=== PATIENT | female | born 1980 | race African-American/Black ===

== ENCOUNTER 2017-04-05 11:00 | Inpatient (IN) | payer OTHER ==
[2017-04-15 08:23] VITALS: BMI 28.8
[2017-04-15] MEDS ORDERED: ELECTROLYTE-148 SOLN 500 ML IV ONE (08:24)
[2017-04-15] MEDS ORDERED: ONDANSETRON 4 MG/2 ML VIAL IVPUSH PRN (08:26)
[2017-04-15] MEDS ORDERED: IBUPROFEN 800 MG/8 ML IJ IVPB PRN (08:26)
[2017-04-15] MEDS ORDERED: ELECTROLYTE-148 SOLN 1,000 ML IV SCH (08:30)
[2017-04-15 08:33] LABS: MCH 24.9 pg (25.7-33.7); MCHC 31.9 g/dl (32.0-36.0); MEAN CELL VOLUME 78.1 fl (80-96); MEAN PLT VOLUME 10.6 fl (7.5-11.1); PLATELET COUNT 148 K/MM3 (134-434); RDW 14.8 % (11.6-15.6)
--- NOTE | 2017-04-15 08:35 | HP ---
Past Medical History - Primary Care Physician PCP:: Marko Kessler - Admission Chief Complaint: 36yo P0 with at EGA 39wk and fetus in breech presentation admitted for primary C/S. History of Present Illness: complicated by: GDM A2 Breech presentation Fibroid uterus Anemia-- Cell saver was ordered but unable to come. Pt declined to reschedule. 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: No: Alzheimer's, CVA, Dementia, Migraine, Multiple Sclerosis, Peripheral Neuropathy, Parkinson's, Seizure, Syncope, TIA, Vertigo, Other Cardiovascular: No: AFIB, Aneurysm, Aortic Insufficiency, Aortic Stenosis, CAD, CHF, Deep Vein Thrombosis, HTN, Hyperlipdemia, UT, Mitral Insufficiency, Mitral Stenosis, Murmur, Pulmonary Hypertension, Other Pulmonary: No: Asthma, Bronchitis, Cancer, COPD, O2 Dependent, Pneumonia, Previously Intubated, Pulmonary Embolus, Pulmonary Fibrosis, Sleep Apnea, Other Gastrointestinal: No: Ascites, Cancer, Constipation, Crohn's Disease, Diverticulitis, Diverticulosis, Esophageal Varices, Gastritis, GERD, GI Bleed, Hemorrhoids, Hiatal Hernia, Inflamatory Bowel Disease, Irritable Bowel Disease, Pancreatitis, Peptic Ulcer Disease, Ulcerative Colitis, Other Hepatobiliary: No: Cirrhosis, Cholelithiasis, Cholecystitis, Choledocholithiasis , Hepatitis A, Hepatitis B, Hepatitis C, Other Renal/: No: Renal Failure, Renal Inusuff, BPH, Cancer, Hematuria, Hemodialysis , Neurogenic Bladder, Renal Calculi, UTI, Other Reproductive: Yes: Fibroids ...: 2 ...Para: 0 ...Term: 0 ...: 0 ...Spon : 1 ...Induced : 0 ...Multiple Gestation: 0 ...LMP: 07/16/16 ... Weeks Gestation by Dates: 39.0 ...EDC by Dates: 04/22/17 ...EDC by Sono: 04/22/17 Heme/Onc: Yes: Anemia Infectious Disease: No: AIDS, C-Diff, Herpes Zoster, HIV, MRSA, STD's, Tuberculosis, VREF, Other Psych: No: Addictions, Anxiety, Bipolar, Depression, Panic, Psychosis, Schizophrenia, Other Musculoskeletal: No: Bursitis, Chronic low back pain, Hemiparesis, Hemiplegia, Osteoarthritis, Paraplegia, Other Rheumatology: No: Fibromyalgia, Gout, Lupus, Rheumatoid Arthritis, Sarcoidosis, Vasculitis, Other ENT: No: Allergic Rhinitis, Sinusitis, Other Endocrine: No: [place]'s Disease, Moshe's Disease, Diabetes Insipidus, Diabetes Mellitus, Hyperparathyroidism, Hyperthyroidism, Hypothyroidism, Osteopenia, SIADH, Other Dermatology: No: Basal Cell, Cellulitis, Eczema, Melanoma, Psoriasis, Squamous Cell, Other - Past Surgical History Past Surgical History: Yes: None Hx Myomectomy: No Hx Transabdominal Cerclage: No - Smoking History Smoking history: Never smoked Have you smoked in the past 12 months: No Aproximately how many cigarettes per day: 0 - Alcohol/Substance Use Hx Alcohol Use: No History of Substance Use: reports: None - Social History ADL: Independent History of Recent Travel: No Home Medications - Allergies Allergies/Adverse Reactions: Allergies Allergy/AdvReac Type Severity Reaction Status Date / Time No Known Allergies Allergy Verified 12/31/16 04:49 - Home Medications Home Medications: Ambulatory Orders Skx638/Iron Fumarate/FA/Dss [ 19 Tablet] 1 each PO DAILY 12/31/16 Insulin NPH 28 units SQ HS 04/05/17 RX: Ferrous Sulfate [Feosol] 325 mg PO TID #90 tablet 04/05/17 RX: Insulin Regular [Novolin R Vial -] 8 units SQ ACDIN 04/05/17 Family Disease History - Family Disease History Family History: Denies Review of Systems - Review of Systems Constitutional: reports: No Symptoms Eyes: reports: No Symptoms HENT: reports: No Symptoms Neck: reports: No Symptoms Cardiovascular: reports: No Symptoms Respiratory: reports: No Symptoms Gastrointestinal: reports: No Symptoms Genitourinary: reports: No Symptoms Breasts: reports: No Symptoms Reported Musculoskeletal: reports: No Symptoms Integumentary: reports: No Symptoms Neurological: reports: No Symptoms Endocrine: reports: No Symptoms Hematology/Lymphatic: reports: No Symptoms Psychiatric: reports: No Symptoms Pain Intensity: 0 Physical Exam - Maternity Vital Signs: Vital Signs Temperature 98.5 F 04/15/17 07:20 Pulse Rate 108 H 04/15/17 07:20 Respiratory Rate 20 04/15/17 07:20 Blood Pressure 118/77 04/15/17 07:20 O2 Sat by Pulse Oximetry (%) Constitutional: Yes: Well Nourished, No Distress, Calm Eyes: Yes: WNL, Conjunctiva Clear HENT: Yes: WNL, Atraumatic, Normocephalic Neck: Yes: WNL, Supple, Trachea Midline Cardiovascular: Yes: WNL, Regular Rate and Rhythm Breast(s): Yes: WNL - Abdominal Exam/OB Fundal Height: 39 Number of Fetuses: Single Presentation: Breech Contractions: No Intensity: Unaware Monitor Mode: External Heart Rate (range): 150 Heart Rate Location: Midline Category: I Accelerations: Non-Uniform Decelerations: None - Vaginal Exam/OB Vaginal Bleediing: No Speculum Exam: No Dilatation (cm): 0 Presentation: Layo Breech Station: -4 - Physical Exam Musculoskeletal: Yes: WNL Extremities: Yes: WNL Edema: No Edema: LLE: Trace, RLE: Trace Integumentary: Yes: WNL Deep Tendon Reflex Grade: Normal +2 ...Motor Strength: WNL Psychiatric: Yes: WNL, Alert, Oriented Hemorrhage Risk Assessment - Risk Factors Medium Risk Factors: Yes: Large myomas High Risk Factors: Yes: None Risk Score: 1 Risk Level: Medium Risk Imaging - Results Ultrasound: Report Reviewed Assessment/Plan 36yo P0 with at EGA 39wk and fetus in breech presentation admitted for primary C/S. 1. Fetus is still breech on exam 2. Anemia discussed with pt. Pt is Jehowah witness and declined PRBC but will accept cryoprecipitate and possibly FFP, if needed. The Cell Saver was ordered but unable to come due to ?? scheduling conflict. The pt was offered to reschedule but declined. 3. Fibroid uterus. Increased risks of bleeding explained. Risks of serious morbidity and mortality explained to pt. 4. Risks of surgery explained, including pain, scarring, infection, injury to underlying organs, hysterectomy, hemorrhage, injury to underlying organs, need for additional surgery to treat any complications, etc. The pt verbalized her understanding and requested to proceed.
[2017-04-15 09:38] LABS: ARTERIAL BLD GAS O2 SATURATION 15.9 % (90-98.9); ARTERIAL BLOOD GAS BASE EXCESS -1.4 meq/l (-2-2); ARTERIAL BLOOD GAS HCO3 26.5 meq/L (22-26); ARTERIAL BLOOD GAS pH 7.26 (7.35-7.45)
[2017-04-15 09:39] LABS: LPM/O2% 21%; PT. ON O2? NO; TYPE OF O2 ROOM AIR
[2017-04-15 09:41] LABS: ARTERIAL BLOOD GAS BASE EXCESS -2.2 meq/l (-2-2); ARTERIAL BLOOD GAS pH 7.31 (7.35-7.45)
[2017-04-15 09:43] LABS: PT. ON O2? NO
[2017-04-15 09:44] LABS: ARTERIAL BLOOD GAS PO2 30.4 mmHg (80-100); LPM/O2% 21%; TYPE OF O2 ROOM AIR
[2017-04-15] MEDS ORDERED: BENZOCAINE 28 GM HEMORRHOIDAL OINTMENT TP PRN (09:48)
[2017-04-15] MEDS ORDERED: SENNOSIDES/DOCUSATE COMBO (SENNA PLUS) TABLET (UD) PO PRN (09:48)
[2017-04-15] MEDS ORDERED: METHYLERGONOVINE MALEATE 0.2 MG/1 ML AMP IM PRN (09:48)
[2017-04-15] MEDS ORDERED: oxyCODONE HCL 5 MG TABLET PO PRN (09:48)
[2017-04-15] MEDS ORDERED: WITCH HAZEL 50% (TUCKS) 40 PAD/JAR PAD TP PRN (09:48)
[2017-04-15] MEDS ORDERED: OXYTOCIN 20 UNITS in 0.9% NS 1,000 ML IV SCH (10:00)
--- NOTE | 2017-04-15 11:58 | OP ---
Operative Note - Note: Operative Date: 04/15/17 Pre-Operative Diagnosis: at EGA 39wk. Mike Breech. Fibroid uterus. Anemia Operation: Primary LT C/S Findings: Fetus in mike breech Uterine fibroids No meconium Post-Operative Diagnosis: Same as Pre-op Surgeon: Marko Kessler Stencil Maker: Deborah Juarez Anesthesiologist/KINDERGARTEN PREP TEACHER: Jose Rodriguez Anesthesia: Spinal Specimens Removed: Placenta Estimated Blood Loss (mls): 700 Drains & Tubes with Location: Kilgore catheter Drains, Volume Out (mls): 300 Blood Volume Replaced (mls): 700 Fluid Volume Replaced (mls): 1,400 Operative Report Dictated: Yes
--- NOTE | 2017-04-15 12:03 | PN ---
Delivery - Delivery Section: Primary, Low Flap Transverse Type of Anesthesia: Spinal Episiotomy/Laceration: None EBL (cc): 700 Delivery, Single - Stages of Labor Date 1st Stage Initiatied: 04/15/17 Date of Delivery: 04/15/17 Time of Delivery: 09:11 Date Placenta Delivered: 04/15/17 Time Placenta Delivered: 09:12 Placenta: Yes: Manual Removal, Normal Configuration - Condition of Infant Medical Director Of Hospice/Margin Analyst Present: Yes Name: Prachi Jackson Gender: Female Weight: 3.459 kg Position: SP Total Hours ROM (Hrs/Mins): 3MIN - 1 Minute Total Score: 9 5 Minutes Total Score: 9 - [place] Feeding Plan Initial Plan: Elected not to breastfeed exclusively throughout hospitalization Benefits of Exclusively reinforced: Yes Remarks - Remarks Remarks: Breech, mike Fibroid uterus.
[2017-04-15 12:41] LABS: METAMYELOCYTE 2 % (0-2); PLATELET ESTIMATE ADEQUATE (NORMAL)
[2017-04-15] MEDS ORDERED: DEXTROSE 5% IVPB SCH (13:30)
[2017-04-15] MEDS ORDERED: OXYTOCIN IVPB SCH (13:30)
[2017-04-15] MEDS ORDERED: WATER IVPB SCH (13:30)
--- NOTE | 2017-04-15 18:58 | OP ---
DATE OF OPERATION: 04/15/2017 PREOPERATIVE DIAGNOSES: 1. at estimated gestational age of 39 weeks. 2. Fetus in mike breech presentation. 3. Gestational diabetes mellitus, diet-controlled, type 2. 4. Fibroid uterus. 5. Anemia. 6. Patient is a [place]. POSTOPERATIVE DIAGNOSES: 1. at estimated gestational age of 39 weeks. 2. Fetus in mike breech presentation. 3. Gestational diabetes mellitus, diet-controlled, type 2. 4. Fibroid uterus. 5. Anemia. 6. Patient is a [place]. 7. Delivered. PROCEDURE: Primary low transverse section via Pfannenstiel skin incision. SURGEON: Marko Kessler MD PRESIDENT CELEBRITY ACQUISTION: Deborah Juarez MD ANESTHESIOLOGIST: Jose Rodriguez MD ANESTHESIA: Spinal. COMPLICATIONS: None. ESTIMATED BLOOD LOSS: 700 mL. URINE OUTPUT: 300 mL of clear urine at the end of the procedure INTRAVENOUS FLUIDS: 1400 mL of crystalloids PATHOLOGY: Placenta FINDINGS: The uterus containing multiple uiwdjyng-pe-zdvgf-size fibroids ranging from 2 to 5 cm. The fetus is in mike breech presentation. No meconium in amniotic fluid. Fetus delivered without complications. Apgars 9 and 9. PROCEDURE: The patient was met preoperatively. The risks, benefits, alternatives of surgery were discussed in detail. All questions were answered. The patient was then brought to the OR with the IV running. She was placed on the surgical table in the sitting position. The spinal anesthesia was achieved without difficulty. The patient was then placed in a supine position with leftward tilt. She was prepped and draped in the usual sterile fashion. The Kilgore catheter was inserted into the bladder and left to drain to gravity. The surgeons then proceeded with the operation. A Pfannenstiel skin incision was made with a knife approximately 2 cm above the pubic symphysis. The incision was carried down to the level of fascia. The fascia was incised in the midline, and the incision was expanded bilaterally using Eid scissors. The fascia was dissected away from the rectus muscle superiorly and inferiorly using sharp dissection. The rectus muscles were in the midline using sharp dissection. The peritoneum was identified and entered sharply. The peritoneal incision was expanded superiorly and inferiorly. The bladder was dissected away from the lower uterine segment using sharp dissection. The bladder was retracted downward using Andre retractor. The uterus was incised transversely in the lower uterine segment. The incision was extended bilaterally using Eid scissors. The baby was then delivered from mike breech presentation without complications. The umbilical cord was clamped and cut. The baby is crying spontaneously and was handed to the awaiting director of distance learning. The placenta was then removed manually without complications. The uterus was cleared of all clots and debris. There were multiple fibroids noted around the uterus. The uterine incision was repaired using a 0 Biosyn suture in a running, locking stitch with good hemostasis and approximation. The uterine incision was then imbricated using a 0 Biosyn suture with good hemostasis and approximation. The bladder peritoneum was approximated using a 0 Biosyn suture. The operative site was irrigated using copious amounts of normal saline. Once the saline was aspirated, good hemostasis was noted. The fallopian tubes and ovaries were noted to be within normal limits. The abdominal peritoneum was then closed using a 2-0 chromic suture. The rectus muscles were approximated in the midline using several interrupted 2-0 chromic sutures. The fascia was closed using a 0 Vicryl suture. The subcutaneous adipose tissues were approximated to eliminate space using several interrupted 0 Vicryl sutures. The skin was closed with a subcutaneous stitch using 4-0 Vicryl suture. Sponge, laparotomy, needle counts were correct. The patient was transferred to recovery room in stable condition. Ann-Marie [id number]
[2017-04-16 08:04] LABS: BASOPHIL 0.3 % (0-2.0); EOSINOPHIL 0.6 % (0-4.5); MCH 24.6 pg (25.7-33.7); MCHC 31.6 g/dl (32.0-36.0); MEAN PLT VOLUME 10.1 fl (7.5-11.1); PLATELET COUNT 137 K/MM3 (134-434); RDW 14.7 % (11.6-15.6); WHITE BLOOD COUNT 11.8 K/mm3 (4.0-10.0)
[2017-04-16] MEDS: ENOXAPARIN NA (PORCINE) 40 MG/0.4 ML DISP.SYRIN SQ SCH (09:44)
[2017-04-16] MEDS ORDERED: BISACODYL 10 MG SUPP.RECT RC PRN (09:48)
--- NOTE | 2017-04-16 10:06 | PN ---
Post Progress Note - Subjective Subjective: 36 YO P1 now no flatus ambulating, voiding tolerating PO Post Day: 1 Type of Delivery: Primary C/S Vital Signs: Vital Signs Temperature 99.1 F 04/16/17 06:00 Pulse Rate 81 04/16/17 06:00 Respiratory Rate 20 04/16/17 07:00 Blood Pressure 109/59 04/16/17 06:00 O2 Sat by Pulse Oximetry (%) 100 04/15/17 10:50 Breast Exam: Yes: Soft Uterus: Yes: Fundus Firm Incision: Yes: Dressing dry and intact Abdomen/GI: Yes: Abdomen soft Lochia: Yes: Rubra Lochia, amount: Small Extremities: Yes: Calves non-tender Activity: Ambulating - Labs Labs: CBC WBC 11.8 K/mm3 (4.0-10.0) H D 04/16/17 07:30 RBC 3.73 M/mm3 (3.60-5.2) 04/16/17 07:30 Hgb 9.2 GM/dL (10.7-15.3) L 04/16/17 07:30 Hct 29.1 % (32.4-45.2) L 04/16/17 07:30 MCV 78.0 fl (80-96) L 04/16/17 07:30 MCHC 31.6 g/dl (32.0-36.0) L 04/16/17 07:30 RDW 14.7 % (11.6-15.6) 04/16/17 07:30 Plt Count 137 K/MM3 (134-434) 04/16/17 07:30 MPV 10.1 fl (7.5-11.1) 04/16/17 07:30 Neutrophils % 73.0 % (42.8-82.8) D 04/16/17 07:30 Lymphocytes % 14.6 % (8-40) D 04/16/17 07:30 Monocytes % 11.5 % (3.8-10.2) H D 04/16/17 07:30 Eosinophils % 0.6 % (0-4.5) 04/16/17 07:30 Basophils % 0.3 % (0-2.0) 04/16/17 07:30 Metamyelocytes 2 % (0-2) D 04/15/17 07:50 Myelocytes 1 % (0-2) 04/15/17 07:50 Differential Comment Manual diff done 04/15/17 07:50 Platelet Estimate Adequate (NORMAL) 04/15/17 07:50 Assessment/Plan 36yo P1 s/p 1"c/s for Breech, Failed External version VSS, Afibrile Doing well Rh+ no need for RhoGam cont routine post Op care
--- NOTE | 2017-04-16 10:16 | PN ---
Progress Note (short form) - Note Progress Note: Anesthesia postop note 36 y/o F s/p spinal anesthesia for section, duramorph for postop pain POD#1, vss, aaox3, no complaints, pain well controlled, ambulating. No anesthesia complications.
[2017-04-16] MEDS ORDERED: DIPHTH,PERTUSS(ACELL),TET 0.5 ML DISP.SYRIN IM ONE (14:00)
[2017-04-16] MEDS: oxyCODONE HCL 5 MG TABLET PO PRN ×2 (15:31→23:55)
[2017-04-16] MEDS: SIMETHICONE 80 MG TAB.CHEW (FP) PO PRN ×2 (15:31→23:54)
[2017-04-16] MEDS: ACETAMINOPHEN 325 MG TABLET (FP) PO PRN ×2 (15:32→23:55)
[2017-04-17] MEDS: oxyCODONE HCL 5 MG TABLET PO PRN ×2 (07:34→15:27)
[2017-04-17] MEDS: SIMETHICONE 80 MG TAB.CHEW (FP) PO PRN ×3 (07:36→22:22)
[2017-04-17] MEDS: ACETAMINOPHEN 325 MG TABLET (FP) PO PRN ×3 (07:36→22:23)
[2017-04-17] MEDS: ENOXAPARIN NA (PORCINE) 40 MG/0.4 ML DISP.SYRIN SQ SCH (09:52)
[2017-04-17] MEDS ORDERED: TUBERCULIN PPD 5 TU/0.1ML SYRINGE (IN PATIENT USE ONLY) ID ONE (12:00)
--- NOTE | 2017-04-17 15:16 | PN ---
Post Progress Note - Subjective Subjective: No complaints Post Day: 2 Type of Delivery: Primary C/S Vital Signs: Vital Signs Temperature 98.2 F 04/17/17 07:25 Pulse Rate 91 H 04/17/17 07:25 Respiratory Rate 20 04/17/17 07:25 Blood Pressure 124/72 04/17/17 07:25 O2 Sat by Pulse Oximetry (%) 100 04/15/17 10:50 Breast Exam: Yes: Soft Uterus: Yes: Fundus Firm, Fundus below umbilicus, Non-tender Incision: Yes: Dressing dry and intact, Sutures intact Abdomen/GI: Yes: Abdomen soft, Passing flatus, Tolerating PO Lochia: Yes: Rubra Lochia, amount: Small Extremities: Yes: Calves non-tender Perineum: Yes: Intact Activity: Ambulating - Labs Labs: CBC WBC 11.8 K/mm3 (4.0-10.0) H D 04/16/17 07:30 RBC 3.73 M/mm3 (3.60-5.2) 04/16/17 07:30 Hgb 9.2 GM/dL (10.7-15.3) L 04/16/17 07:30 Hct 29.1 % (32.4-45.2) L 04/16/17 07:30 MCV 78.0 fl (80-96) L 04/16/17 07:30 MCHC 31.6 g/dl (32.0-36.0) L 04/16/17 07:30 RDW 14.7 % (11.6-15.6) 04/16/17 07:30 Plt Count 137 K/MM3 (134-434) 04/16/17 07:30 MPV 10.1 fl (7.5-11.1) 04/16/17 07:30 Neutrophils % 73.0 % (42.8-82.8) D 04/16/17 07:30 Lymphocytes % 14.6 % (8-40) D 04/16/17 07:30 Monocytes % 11.5 % (3.8-10.2) H D 04/16/17 07:30 Eosinophils % 0.6 % (0-4.5) 04/16/17 07:30 Basophils % 0.3 % (0-2.0) 06/06/17 07:30 Metamyelocytes 2 % (0-2) D 04/15/17 07:50 Myelocytes 1 % (0-2) 04/15/17 07:50 Differential Comment Manual diff done 04/15/17 07:50 Platelet Estimate Adequate (NORMAL) 04/15/17 07:50 Assessment/Plan 36yo P1 s/p primary LT C/S, doing well stable, afebrile. care instructions reviewed. Continue routine postop care. Ambulation encouraged..
[2017-04-17] MEDS: IBUPROFEN 600 MG TABLET (FP) PO PRN (22:22)
[2017-04-18 07:32] LABS: BASOPHIL 0.3 % (0-2.0); EOSINOPHIL 2.4 % (0-4.5); MCH 25.2 pg (25.7-33.7); MCHC 32.2 g/dl (32.0-36.0); MEAN CELL VOLUME 78.2 fl (80-96); MEAN PLT VOLUME 9.6 fl (7.5-11.1); NEUTROPHILS 64.9 % (42.8-82.8); PLATELET COUNT 157 K/MM3 (134-434); RDW 15.8 % (11.6-15.6)
--- NOTE | 2017-04-18 07:50 | PN ---
Post Progress Note - Subjective Subjective: Patient without acute complaints. Reports tolerating oral intake without nausea or vomiting. Ambulating without dizziness. Denies fevers or chills. Pain well controlled with oral pain medication. without difficulty. Passing flatus. Post Day: 3 Type of Delivery: Primary C/S Vital Signs: Vital Signs Temperature 98.1 F 04/17/17 22:00 Pulse Rate 77 04/17/17 22:00 Respiratory Rate 18 04/17/17 22:00 Blood Pressure 112/73 04/17/17 22:00 O2 Sat by Pulse Oximetry (%) 100 04/15/17 10:50 Breast Exam: Yes: Soft Uterus: Yes: Fundus Firm, Fundus below umbilicus Incision: Yes: Sutures intact. No: Redness, Oozing Abdomen/GI: Yes: Abdomen soft, Passing flatus, Tolerating PO. No: Abdominal Distention, Tender Lochia: Yes: Serosa Lochia, amount: Small Extremities: Yes: Calves non-tender Activity: Ambulating - Labs Labs: CBC WBC 11.8 K/mm3 (4.0-10.0) H D 04/16/17 07:30 RBC 3.73 M/mm3 (3.60-5.2) 04/16/17 07:30 Hgb 9.2 GM/dL (10.7-15.3) L 04/16/17 07:30 Hct 29.1 % (32.4-45.2) L 04/16/17 07:30 MCV 78.0 fl (80-96) L 04/16/17 07:30 MCHC 31.6 g/dl (32.0-36.0) L 04/16/17 07:30 RDW 14.7 % (11.6-15.6) 04/16/17 07:30 Plt Count 137 K/MM3 (134-434) 04/16/17 07:30 MPV 10.1 fl (7.5-11.1) 04/16/17 07:30 Neutrophils % 73.0 % (42.8-82.8) D 04/16/17 07:30 Lymphocytes % 14.6 % (8-40) D 04/16/17 07:30 Monocytes % 11.5 % (3.8-10.2) H D 04/16/17 07:30 Eosinophils % 0.6 % (0-4.5) 04/16/17 07:30 Basophils % 0.3 % (0-2.0) 04/16/17 07:30 Metamyelocytes 2 % (0-2) D 04/15/17 07:50 Myelocytes 1 % (0-2) 04/15/17 07:50 Differential Comment Manual diff done 04/15/17 07:50 Platelet Estimate Adequate (NORMAL) 04/15/17 07:50 Assessment/Plan 36 yo POD3 sp 1 CD, mild asymptomatic anemia, doing well 1. Continue routine postoperative care. 2. Encourage ambulation and incentive spirometer use 3. Continue oral pain medication 4. Mild asymptomatic anemia, will start ferrous sulfate 5. Anticipate discharge home postoperative day #4
[2017-04-18] MEDS: ENOXAPARIN NA (PORCINE) 40 MG/0.4 ML DISP.SYRIN SQ SCH (09:34)
[2017-04-18] MEDS: FERROUS SO4 325 MG TABLET (FP) PO SCH ×2 (10:37→17:23)
[2017-04-18] MEDS: IBUPROFEN 600 MG TABLET (FP) PO PRN (21:03)
[2017-04-18] MEDS: SIMETHICONE 80 MG TAB.CHEW (FP) PO PRN (21:03)
[2017-04-18] MEDS: ACETAMINOPHEN 325 MG TABLET (FP) PO PRN (21:03)
--- NOTE | 2017-04-19 07:19 | DS ---
Physical Exam-BRUSH PAINTER Vital Signs: Vital Signs Temperature 98.9 F 04/18/17 22:00 Pulse Rate 80 04/18/17 22:00 Respiratory Rate 20 04/18/17 22:00 Blood Pressure 110/59 04/18/17 22:00 O2 Sat by Pulse Oximetry (%) 100 04/15/17 10:50 Constitutional: Yes: Well Nourished, No Distress, Calm Eyes: Yes: WNL, Conjunctiva Clear, EOM Intact HENT: Yes: WNL, Atraumatic, Normocephalic Neck: Yes: WNL, Supple, Trachea Midline Cardiovascular: Yes: WNL, Regular Rate and Rhythm Respiratory: Yes: WNL, Regular, CTA Bilaterally Gastrointestinal: Yes: WNL ...Rectal Exam: Yes: WNL Renal/: Yes: WNL ....Post : Yes: Uterus firm, Uterus non-tender Breast(s): Yes: WNL Musculoskeletal: Yes: WNL Extremities: Yes: WNL Edema: Yes Edema: LLE: Trace, RLE: Trace Integumentary: Yes: WNL Wound/Incision: Yes: Clean/Dry, Well Approximated, Sutures Intact Neurological: Yes: WNL, Alert, Oriented ...Motor Strength: WNL Psychiatric: Yes: WNL, Alert, Oriented Labs: CBC, BMP 04/18/17 06:00 Delivery - Delivery Section: Primary, Low Flap Transverse Type of Anesthesia: Spinal Episiotomy/Laceration: None EBL (cc): 700 Delivery, Single - Stages of Labor Date 1st Stage Initiatied: 04/15/17 Date of Delivery: 04/15/17 Time of Delivery: 09:11 Time Placenta Delivered: 09:12 Placenta: Yes: Manual Removal, Normal Configuration - Condition of Director Retirement/Revenue Stamper Present: Yes Name: Prachi Jackson Gender: Female Weight: 7 lb 10 oz Position: SP Total Hours ROM (Hrs/Mins): 3MIN - 1 Minute Total Score: 9 5 Minutes Total Score: 9 - [place] Feeding Plan Initial Plan: Elected not to breastfeed exclusively throughout hospitalization Benefits of Exclusively reinforced: Yes Discharge Summary Reason For Visit: C SECTION Condition: Good - Instructions Diet, Activity, Other Instructions: regular diet, follow up office 1 week Referrals: Marko Kessler MD [Staff Physician] - Disposition: HOME - Home Medications Comprehensive Discharge Medication List: Ambulatory Orders [id number]/Iron Fumarate/FA/Dss [ 19 Tablet] 1 each PO DAILY 12/31/16 Ferrous Sulfate [Feosol] 325 mg PO TID #90 tablet 04/05/17 Insulin NPH 28 units SQ HS 04/05/17 Insulin Regular [Novolin R Vial -] 8 units SQ ACDIN 04/05/17 Ibuprofen [Motrin -] 600 mg PO QID #28 tablet 04/18/17
[2017-04-19] MEDS: FERROUS SO4 325 MG TABLET (FP) PO SCH (07:28)
[2017-04-19 08:44] VITALS: BP 130/86; PULSE 84; TEMP 97.8
[2017-04-19] MEDS: ENOXAPARIN NA (PORCINE) 40 MG/0.4 ML DISP.SYRIN SQ SCH (09:56)
--- NOTE | 2017-04-19 14:50 | PATH ---
Surgical Pathology Report Patient Name: SARAH BETH HELTON [facility]. Rec. 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 Specimen(s) Received PLACENTA Clinical History , 39 weeks, breech presentation Gestational diabetic-insulin controlled Fibroid uterus, SPAB x1 Final Diagnosis PLACENTA, DELIVERY: FOCALLY DISRUPTED THIRD TRIMESTER PLACENTA WITH THREE VESSEL UMBILICAL CORD AND UNREMARKABLE PLACENTAL MEMBRANES. Electronically Signed Link Marcelo M.D. Gross Description The specimen is received fresh labeled placenta and is a 689 gram, 20.5 x 19.5 x 2.7 cm. placenta with attached membranes and umbilical cord. The attached membranes are helms, translucent with focal opacities and insert marginally. The umbilical cord measures 16 cm. in length and averages 1.2 cm. in diameter. The cord inserts centrally. No true knots or strictures are identified. Cut surface of the umbilical cord reveals 3 vessels. The surface is kearney-blue with minimal fibrin deposition and appropriate caliber vessels. The maternal surface is red-brown with focal defects. Sectioning reveals red-brown, spongy parenchyma. No lesions are identified. Sock Mender sections are submitted in three cassettes as follows: 1- membrane rolls and umbilical cord; 2-3- full thickness sections of placenta. 04/18/2017 [facility]04/18/2017
== END 2017-04-19 12:50 | disposition home or self-care (01) | DRG 766 ==
LOC: JLDR 04-15 07:20 → J3W 04-15 11:45
PROVIDERS: ADMIT Obstetrics & Gynecology; ATTEND Obstetrics & Gynecology
PROC: 10D00Z1 Extraction of Products of Conception, Low, Open Approach (ICD-10-PCS; principal; 2017-04-15)
DX: O32.1XX0 Maternal care for breech presentation, not applicable or unspecified (principal); O24.429 Gestational diabetes mellitus in childbirth, unspecified control; O99.02 Anemia complicating childbirth; O34.13 Maternal care for benign tumor of corpus uteri, third trimester; Z3A.39 39 weeks gestation of pregnancy; Z37.0 Single live birth
CPT/HCPCS: 36415; 36600; 71020-TC; 82803; 85025; 86850; 86900; 86901; 88307-TC; 90715

== ENCOUNTER → 2020-10-24 | Day surgery (SDC) | payer OTHER ==
[2020-10-21 11:35] VITALS: BMI 25.7
[~2020-10-24] MED LIST: LACTATED RINGERS SOLUTION 1,000 ML IV SCH; MIDAZOLAM HCL 2 MG/2 ML SINGLE DOSE VIAL ONE; ONDANSETRON 4 MG/2 ML VIAL IVPUSH PRN; ceFAZolin SODIUM 1 GM VIAL IVPB ONE; oxyCODONE HCL 5 MG TABLET PO PRN
[2020-10-24 12:41] VITALS: TEMP 98.6
[2020-10-24 13:08] VITALS: BP 102/5; PULSE 64
== END | disposition home or self-care (01) ==
LOC: JASU-SURG 05:04
PROVIDERS: ATTEND Obstetrics & Gynecology
PROC: 0UB98ZZ Excision of Uterus, Via Natural or Artificial Opening Endoscopic (ICD-10-PCS; principal; 2020-10-24 10:30)
PROC: 0UDB8ZX Extraction of Endometrium, Via Natural or Artificial Opening Endoscopic, Diagnostic (ICD-10-PCS; 2020-10-24 10:30)
DX: D25.0 Submucous leiomyoma of uterus (principal); N92.1 Excessive and frequent menstruation with irregular cycle; N85.8 Other specified noninflammatory disorders of uterus
CPT/HCPCS: 36415; 84703; 86850; 86900; 86901; 88305-TC; 94760

== ENCOUNTER 2024-08-10 18:32 | Emergency (ER) | payer BC, OTHER ==
[2024-08-10 19:02] VITALS: BP 155/83; PULSE 100; RESP 16; TEMP 98.4; BMI 29.2
[2024-08-10 20:16] LABS: BASO % 0.9 % (0-2.0); HEMATOCRIT 35.2 % (32.4-45.2); HEMOGLOBIN 11.2 GM/dL (10.7-15.3); LYMPH % 26.6 % (8-40); MCHC 31.7 g/dl (32.0-36.0); MEAN CELL VOLUME 75.8 fl (80-96); MEAN PLT VOLUME 9.4 fl (7.5-11.1); NEUT % 63.5 % (42.8-82.8); PLATELET COUNT 206 10^3/uL (134-434); RBC 4.65 M/mm3 (3.60-5.2); RDW 13.9 % (11.6-15.6); WHITE BLOOD COUNT 8.5 K/mm3 (4.0-10.0)
[2024-08-10 20:36] LABS: CALCIUM 9.3 mg/dL (8.5-10.1); POTASSIUM 4.1 mmol/L (3.5-5.1)
[2024-08-10 20:37] LABS: ALBUMIN 3.4 g/dl (3.4-5.0); MAGNESIUM 1.9 mg/dL (1.8-2.4)
[2024-08-10 20:40] LABS: CREATININE 0.9 mg/dL (0.55-1.3); PHOSPHOROUS 2.9 mg/dL (2.5-4.9)
[2024-08-10 20:41] LABS: BILIRUBIN,TOTAL 0.3 mg/dL (0.2-1); TOT PROT 6.8 g/dl (6.4-8.2)
== END 2024-08-10 21:12 | disposition home or self-care (01) ==
LOC: JER 18:32
DX: R20.0 Anesthesia of skin (principal); R20.2 Paresthesia of skin
CPT/HCPCS: 36415; 80053; 83735; 84100; 84702; 85025; 99283-25